=== PATIENT | male | born 1985 | race Caucasian/White ===

== ENCOUNTER → 2019-03-07 | Outpatient (CLI) | payer OTHER ==
--- NOTE | 2019-03-09 06:51 | SLE ---
[facility] [place] [address] POLYSOMNOGRAPHY STUDY Name: TONE GANDHI Room #: [facility]#: [id number] Admission: 03/07/19 ������������������ Attend Phys: Tyler Flores MD Discharge: ������������������ Date of : 81 Report #: [id number] THIS REPORT FOR: //name// CC: Tyler SOUZA MD DATE OF SERVICE: 03/07/2019 ATTENDING PHYSICIAN: Dr. Ildefonso Souza. The patient is 34 years old who weighs 130 pounds with a BMI of 18.7. The patient's Stafford score was 14. The patient underwent diagnostic sleep study performed at [facility]. During the night study, the patient spent 468 minutes in bed and slept for 288 minutes with a low sleep efficiency of 61%. Sleep latency was 42 minutes with a REM latency of 270 minutes. Overall, sleep architecture showed normal stage 1 sleep, increased stage 2 sleep, normal N3 sleep and slightly reduced REM sleep, which was 14% of the total sleep time. During the night study, the patient had no apneas. There were only 6 hypopneas. The patient's apnea hypopnea index was only 1.3 per hour. REM index was 6.1 per hour and a supine index of 2.1 per hour. EKG monitoring revealed an average heart rate of 59 beats per minute with a maximum of 103 beats per minute. No sustained arrhythmias were observed. PLMs were seen at an index of 20 per hour, but only 2 per hour caused EEG arousals. Nocturnal oximetry study revealed an average oxygen saturation of 97% with a lowest of 78%, which appeared to be an artifact. Overall, only 0.5 minutes were spent at an oxygen saturation less than 89%. Due to low AHI, the patient did not meet the split night criteria for CPAP initiation. IMPRESSION: 1. No clinically significant sleep disordered breathing. The patient's AHI for the entire night was only 1.3 per hour. 2. No clinically significant nocturnal hypoxia. 3. Mild periodic limb movements. 4. Reduced sleep efficiency of 61% resulting from sleep onset and sleep maintenance insomnia. [facility] [address] [place] [address] POLYSOMNOGRAPHY STUDY Name: BETO GANDHIN Allison Room #: [facility]#: [id number] Admission: 03/07/19 ������������������ Attend Phys: Tyler Flores MD Discharge: ������������������ Date of : 81 Report #: [id number] RECOMMENDATIONS: 1. The patient did not meet the criteria for CPAP initiation due to very low AHI. 2. The patient has moderate subjective hypersomnia. It can be related to the patient's insomnia; however, if clinical suspicion for other disorders such as narcolepsy or idiopathic hypersomnia is high, then the patient would require multiple sleep latency tests. 3. Avoid [employer] depressants. 4. Cautioned regarding driving until the patient's hypersomnia is resolved. 5. PLMs does not need to be treated unless the patient has symptoms of restless legs during the day. ��������������������������������������������� <ELECTRONICALLY SIGNED> ���������������������������������������� By: Tyler Flores MD ��������������������������������������������� 03/09/19 [id number] Tyler Flores MD /nt
== END ==
LOC: SLEEPLAB 13:43
DX: G47.33 Obstructive sleep apnea (adult) (pediatric) (principal); G47.61 Periodic limb movement disorder